=== PATIENT | female | born 2000 | race Caucasian/White ===

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

== ENCOUNTER 2020-07-26 12:55 | Emergency (ER) | payer BC ==
[~2020-07-26] VITALS: Ht 157.5 cm; Wt 50.0 kg
[~2020-07-26 12:55] MED LIST: NAPROXEN 3375 MG/TAB PO
[2020-07-26 12:58] VITALS: TEMP 98.2
[2020-07-26 13:43] LABS: BASO % 0.4 % (0.0-2.0); EOS # 0.1 (0.0-0.7); EOS % 1.5 % (0-4.0); GRAN % 43.2 % (42.2-75.2); HEMOGLOBIN 12.2 g/dl (12.0-15.0); LYMPH # 2.2 (1.2-3.4); LYMPH % 47.6 % (20.0-51.0); MEAN CELL VOLUME 89 fl (80.0-95.0); MEAN CORPUSCULAR HEMOGLOBIN 31 pg (26.0-32.0); MEAN CORPUSCULAR HGB CONC 34 g/dl (33.0-37.0); MEAN PLATELET VOLUME 11.5 fl (7.4-10.4); MONO # 0.3 (0.1-0.6); MONO % 7.1 % (1.7-9.3); PLATELET COUNT 171 K/mm3 (130-400)
[2020-07-26 13:44] LABS: HEMATOCRIT 35.7 % (35.0-45.0)
[2020-07-26 13:57] LABS: ALANINE AMINOTRANSFERASE 11 U/L (4-34); ALBUMIN 4.7 gm/dL (3.5-5.0); ALKALINE PHOSPHATASE 46 U/L (50-136); ANION GAP 8 mmol/L (7-16); AST,SGOT 20 U/L (15-37); BILIRUBIN,TOTAL 0.6 mg/dL (0.0-1.0); BLOOD UREA NITROGEN 13 mg/dL (7-17); CALCIUM 9.2 mg/dL (8.4-10.2); CARBON DIOXIDE 25 mmol/L (22-30); CHLORIDE 105 mmol/L (98-107); GLUCOSE 80 mg/dL (74-106); POTASSIUM 4.1 mmol/L (3.4-5.0); SODIUM 138 mmol/L (137-145); TOTAL PROTEIN 7.8 gm/dL (6.4-8.2)
[2020-07-26 14:02] LABS: C-REACTIVE PROTEIN < 0.5 mg/dL (0.0-0.9)
[2020-07-26 14:21] LABS: TROPONIN-I < 0.012 ng/mL (0.000-0.035)
[2020-07-26 14:40] VITALS: BP 126/75; PULSE 69
== END 2020-07-26 14:51 | disposition home or self-care (01) ==
LOC: COL.ER 12:55
PROVIDERS: Physician Assistant
DX: R07.89 Other chest pain (principal)
CPT/HCPCS: J1885; J7030